=== PATIENT | male | born 1990 | race Caucasian/White ===

== ENCOUNTER 2018-02-23 05:16 | Day surgery (SDC) | payer OTHER ==
[~2018-02-23] VITALS: Ht 182.9 cm; Wt 75.2 kg
[2018-02-23] MEDS ORDERED: LACTATED RINGERS 1,000 ML IV SCH (05:54)
[2018-02-23] MEDS ORDERED: BUPIVACAINE/PF 0.25% ONE (06:15)
[2018-02-23] MEDS ORDERED: EPINEPHRINE 1 MG/ML, 1ML ONE (06:15)
[2018-02-23] MEDS ORDERED: FENTANYL PF 250 MCG/5ML ONE (06:21)
[2018-02-23] MEDS ORDERED: MIDAZOLAM 1 MG/ML, 2ML ONE (06:21)
[2018-02-23] MEDS ORDERED: ROCURONIUM 10MG/ML,5ML ONE (07:00)
[2018-02-23] MEDS ORDERED: CEFAZOLIN 1,000 MG ONE (07:00)
[2018-02-23] MEDS ORDERED: GABAPENTIN 300 MG CAPSULE PO ONE (07:00)
[2018-02-23] MEDS ORDERED: PROPOFOL 10 MG/ML, 20ML ONE (07:00)
[2018-02-23] MEDS ORDERED: SUCCINYLCHOLINE 20 MG/ML, 10ML ONE (07:00)
[2018-02-23] MEDS ORDERED: ACETAMINOPHEN 500 MG TABLET PO ONE (07:00)
[2018-02-23] MEDS ORDERED: OxyconTIN ER 10 MG TAB.ER PO ONE (07:00)
[2018-02-23] MEDS ORDERED: DEXAMETHASONE 4 MG/ML, 1ML ONE (07:00)
[2018-02-23] MEDS ORDERED: ONDANSETRON 2MG/ML, 2ML ONE (07:00)
[2018-02-23] MEDS ORDERED: NEOSTIGMINE 1 MG/ML, 10ML ONE (07:00)
[2018-02-23] MEDS ORDERED: GLYCOPYRROLATE 0.2MG/1ML, 5ML ONE (07:00)
[2018-02-23] MEDS ORDERED: ONDANSETRON 2MG/ML, 2ML IVPush PRN (07:30)
[2018-02-23] MEDS ORDERED: LABETALOL 5MG/ML, 20ML IV PRN (07:30)
[2018-02-23] MEDS ORDERED: ALBUTEROL SULFATE 2.5 MG/3 ML NPPB PRN (07:30)
[2018-02-23] MEDS ORDERED: FENTANYL PF 100 MCG/2ML IV PRN (07:30)
[2018-02-23] MEDS ORDERED: OXYcodone 5 MG/5 ML ORAL.SOL UDC PO PRN (07:30)
[2018-02-23] MEDS ORDERED: METOCLOPRAMIDE 5 MG/ML, 2ML IV PRN (07:30)
[2018-02-23] MEDS ORDERED: HYDROmorphone 1 MG/ML, 1ML IV PRN (07:30)
[2018-02-23] MEDS ORDERED: KETOROLAC 30 MG/1 ML IV PRN (07:30)
[2018-02-23] MEDS ORDERED: hydrALAzine 20 MG/ML, 1ML IV PRN (07:30)
[2018-02-23] MEDS ORDERED: PROMETHAZINE 25 MG/ML, 1ML IV PRN (07:30)
[2018-02-23] MEDS ORDERED: SUGAMMADEX 200 MG/2 ML IVPush ONE (08:00)
[2018-02-23] MEDS ORDERED: MEPERIDINE/PF 50 MG/ML ONE (08:05)
[2018-02-23] MEDS: MEPERIDINE/PF 25MG/0.5ML IVPush PRN ×2 (08:05→08:13)
[2018-02-23] MEDS ORDERED: PROMETHAZINE 25MG TABLET PO PRN (09:30)
== END 2018-02-23 10:45 ==
LOC: OR 05:16 → OUT 10:45
PROVIDERS: ATTEND Orthopaedic Surgery
DX: M75.112 Incomplete rotator cuff tear or rupture of left shoulder, not specified as traumatic (principal); M75.42 Impingement syndrome of left shoulder; M24.112 Other articular cartilage disorders, left shoulder
CPT/HCPCS: 29823; 29826; 64415; J0171; J0330; J0690; J1100; J2175; J2250; J2405; J2704; J2710; J3010; J3490; J7120